=== PATIENT | male | born 2000 | race African-American/Black ===

== ENCOUNTER 2021-02-01 18:51 | Emergency (ER) | payer OTHER ==
--- NOTE | 2021-02-01 19:22 | XRAY Report ---
PROCEDURE: Wrist 4 View RT INDICATIONS: Trauma TECHNIQUE: 4 views of the wrist were acquired. COMPARISON: None FINDINGS: Bones: No fractures or dislocations. No suspicious bony lesions. Scapholunate interval is maintain ed. Scaphoid view: Scaphoid appears intact. Scapholunate interval is preserved. Soft tissues: No suspicious soft tissue calcifications. IMPRESSION: Right wrist without acute radiographic abnormalities. Normal alignment. Reviewed by: Jeffery Minaya MD on 02/01/2021 7:21 PM PDT Approved by: Jeffery Minaya MD on 02/01/2021 7:21 PM PDT Station ID: [id number]
--- NOTE | 2021-02-01 19:52 | ED Physician Documentation ---
PD HPI UPPER EXT INJURY - Stated complaint Stated Complaint: RT WRIST INJURY - Chief complaint Chief Complaint: Ext Problem - History obtained from History obtained from: Patient - History of Present Illness Location: Right, Wrist Timing - onset: How many weeks ago (2) Timing - duration: Weeks (2) Timing - details: Gradual onset Pain level max: 5 Pain level now: 4 Improved by: Rest Worsened by: Moving, Palpating Associated symptoms: No: Weakness, Numbness, Tingling, Swelling, Discolored - Additonal information Additional information: Patient is a 20-year-old male who states that he has been having right wrist pain for the past 2 weeks. He states he was boxing today for a few hours and after boxing the pain had increased in the wrist. Worse with movement, better with rest. Patient is right-handed. Review of Systems Constitutional: denies: Fever Neurologic: denies: Head injury PD PAST MEDICAL HISTORY - Past Medical History Past Medical History: No - Past Surgical History Past Surgical History: No - Allergies Allergies/Adverse Reactions: Allergies Allergy/AdvReac Type Severity Reaction Status Date / Time No Known Drug Allergies Allergy Verified 02/01/21 18:55 - Living Situation Living Arrangement: reports: At home - Social History Does the pt have substance abuse?: No - Family History Family history: reports: Non contributory PD ED PE NORMAL - Vitals Vital signs reviewed: Yes - General General: Alert and oriented X 3, No acute distress - HEENT HEENT: Moist mucous membranes - Derm Derm: Warm and dry - Extremities Extremities: Other (No bony tenderness over the right wrist. No snuffbox tenderness. Neurovascularly intact. No pain with range of motion of the fingers, mild pain with range of motion of the right thumb. Most of the pain is with flexion and extension of the wrist.) - Neuro Neuro: Alert and oriented X 3 Results - Vitals Vitals: Vital Signs - 24 hr 02/01/21 02/01/21 18:55 20:12 Temperature 36.5 C Heart Rate 88 72 Respiratory 16 16 Rate Blood Pressure 130/60 132/76 H O2 Saturation 96 98 Oxygen O2 Source Room air - Rads (name of study) Right wrist x-ray Radiology: Final report received, EMP read contemporaneously, See rad report (no acute abnormality) PD MEDICAL DECISION MAKING - ED course Complexity details: reviewed results, considered differential, d/w patient ED course: Placed in a Velcro thumb spica for comfort. We will have him follow-up with his doctor for further care. No acute findings on x-ray. Patient counseled regarding signs and symptoms for which I believe and urgent re-evaluation would be necessary. Patient with good understanding of and agreement to plan and is comfortable going home at this time This document was made in part using voice recognition software. While efforts are made to proofread this document, sound alike and grammatical errors may occur. Departure - Departure Disposition: 01 Home, Self Care Clinical Impression: Sprain of wrist, right Qualifiers: Encounter type: initial encounter Qualified Code(s): S63.501A - Unspecified sprain of right wrist, initial encounter Condition: Good Instructions: ED Sprain Wrist Follow-Up: Provider,Other [Primary Care Provider] - [facility] [Provider Group] - Within 1 week Comments: Your x-ray does not show any acute abnormalities tonight. Please wear the [place] It is important you follow-up with them to ensure proper healing. Discharge Date/Time: 02/01/21 20:12
[2021-02-01 20:15] VITALS: BP 132/76
== END 2021-02-01 20:12 | disposition home or self-care (01) ==
LOC: ED 18:51
DX: S63.501A Unspecified sprain of right wrist, initial encounter (principal); W22.8XXA Striking against or struck by other objects, initial encounter; Y93.59 Activity, other involving other sports and athletics played individually
CPT/HCPCS: 99282; 99283

== ENCOUNTER 2021-05-31 15:04 | Outpatient (CLI) | payer OTHER ==
--- NOTE | 2021-06-03 08:46 | XRAY Report ---
PROCEDURE: Hand 3 View LT INDICATIONS: CONTUSION OF L HAND TECHNIQUE: 3 views of the hand(s) acquired. COMPARISON: None FINDINGS: Bones: No fractures or dislocations. No suspicious bony lesions. Soft tissues: No suspicious soft tissue calcifications. IMPRESSION: Normal left hand x-ray Reviewed by: Colby Bray on 06/03/2021 8:44 AM [facility] Approved by: Colby Bray on 06/03/2021 8:44 AM [facility] Station ID: [id number]
== END 2021-05-31 15:05 | disposition home or self-care (01) ==
LOC: DI.N 15:04
PROVIDERS: ATTEND Family Medicine
DX: S60.222A Contusion of left hand, initial encounter (principal)

== ENCOUNTER 2021-07-04 08:00 | Outpatient (CLI) | payer OTHER ==
--- NOTE | 2021-07-04 17:44 | XRAY Report ---
PROCEDURE: Knee 2 View RT INDICATIONS: SPRAIN OF RIGHT KNEE TECHNIQUE: 2 views of the right knee(s) were acquired. COMPARISON: None. FINDINGS: Bones: No fractures or dislocations. No suspicious bony lesions. Soft tissues: There is a mild joint effusion. No suspicious soft tissue calcifications. IMPRESSION: Mild joint effusion, without an acute bony abnormality seen. If it would be helpful for clinical management decision making, please consider a dedicated, schedule d knee MRI for further evaluation (assuming that there is no contraindication). Reviewed by: Angus Gandhi MD on 07/04/2021 4:42 PM [facility] Approved by: Angus Gandhi MD on 07/04/2021 4:42 PM [facility] Station ID: [id number]
== END 2021-07-04 23:59 ==
LOC: DI.N 08:00
PROVIDERS: ATTEND Nurse Practitioner
DX: S83.401A Sprain of unspecified collateral ligament of right knee, initial encounter (principal); M25.461 Effusion, right knee